=== PATIENT | female | born 1965 | race American Indian/Alaskan Native ===

== ENCOUNTER 2018-12-04 17:49 | Emergency (ER) | payer BC ==
[2018-12-04 18:45] VITALS: BP 180/104; PULSE 76; RESP 18; TEMP 98.6; O2SAT 99
--- NOTE | 2018-12-04 18:52 | ED PDOC ---
Arrival/HPI - General Chief Complaint: Chest Pain Time Seen by Provider: 12/04/18 18:40 Historian: Patient - History of Present Illness Narrative History of Present Illness (Text): 12/04/18 18:47 53 year old female, with past medical history of hypertension, presents to the Emergency department for evaluation of intermittent chest discomfort since 2 pm this afternoon. Patient informs the episodes are transient lasting for a few min and brought on even when resting. pt states she pain is a dull ache. states she had a stress test recently , unsure of results but believes they are neg. Patient denies any other associated somatic complaints. Patient denies any fevers, chills, headache, dizziness, shortness of breath, dyspnea on exertion, cough, abdominal pain, nausea, vomiting, diarrhea, back pain, neck pain, or any other complaints. 12/04/18 21:13 Time/Duration: 4-6 hours Symptom Onset: Gradual Symptom Course: Unchanged Activities at Onset: Light Context: Home Past Medical History - Provider Review Nursing Documentation Reviewed: Yes - Infectious Disease Hx of Infectious Diseases: None - Reproductive Currently : Unknown - Cardiac Hx Cardiac Disorders: Yes Hx Hypertension: Yes - Pulmonary Hx Respiratory Disorders: No - Neurological Hx Neurological Disorder: No - HEENT Hx HEENT Disorder: No - Renal Hx Renal Disorder: No - Endocrine/Metabolic Hx Endocrine Disorders: No - Hematological/Oncological Hx Blood Disorders: No - Integumentary Hx Dermatological Disorder: No - Musculoskeletal/Rheumatological Hx Musculoskeletal Disorders: No - Gastrointestinal Hx Gastrointestinal Disorders: No - Genitourinary/Gynecological Hx Genitourinary Disorders: No - Psychiatric Hx Psychophysiologic Disorder: No Hx Substance Use: No - Surgical History Hx Section: Yes (x 2) Other/Comment: breast reduction Family/Social History - Physician Review Nursing Documentation Reviewed: Yes Family/Social History: No Known Family HX Smoking Status: Never Smoked Hx Alcohol Use: No Hx Substance Use: No Allergies/Home Meds Allergies/Adverse Reactions: Allergies No Known Allergies Allergy (Verified 03/02/16 20:25) Home Medications: Home Meds Medication Instructions Recorded Confirmed RX: Amlodipine/Valsartan 1 tab PO DAILY 03/02/16 03/02/16 [Amlodipine-Valsartan 5-160 mg] RX: Nebivolol [Bystolic] 10 mg PO DAILY 03/02/16 03/02/16 Review of Systems - Physician Review All systems were reviewed & negative as marked: Yes - Review of Systems Constitutional: absent: Fevers Respiratory: absent: SOB, Cough Cardiovascular: Chest Pain Gastrointestinal: absent: Abdominal Pain, Diarrhea, Nausea, Vomiting Genitourinary Female: absent: Dysuria, Urine Output Changes Musculoskeletal: absent: Back Pain, Neck Pain Skin: absent: Rash Neurological: absent: Headache, Dizziness Psychiatric: absent: Anxiety Physical Exam Vital Signs Reviewed: Yes Vital Signs Temp Pulse Resp BP Pulse Ox 12/04/18 18:42 98.6 F 76 18 180/104 H 99 Temperature: Afebrile Blood Pressure: Normal Pulse: Tachycardic Respiratory Rate: Normal Appearance: Positive for: Well-Appearing, Non-Toxic, Comfortable Pain Distress: None Mental Status: Positive for: Alert and Oriented X 3 - Systems Exam Head: Present: Atraumatic, Normocephalic Pupils: Present: PERRL Extroacular Muscles: Present: EOMI Conjunctiva: Present: Normal Mouth: Present: Moist Mucous Membranes Neck: Present: Normal Range of Motion Respiratory/Chest: Present: Clear to Auscultation, Good Air Exchange. No: Respiratory Distress, Accessory Muscle Use Cardiovascular: Present: Regular Rate and Rhythm, Normal S1, S2. No: Murmurs Abdomen: No: Tenderness, Distention, Peritoneal Signs Back: Present: Normal Inspection Upper Extremity: Present: Normal Inspection. No: Cyanosis, Edema Lower Extremity: Present: Normal Inspection. No: Edema Neurological: Present: GCS=15, CN II-XII Intact, Speech Normal Skin: Present: Warm, Dry, Normal Color. No: Rashes Psychiatric: Present: Alert, Oriented x 3, Normal Insight, Normal Concentration Medical Decision Making ED Course and Treatment: 12/04/18 18:54 Impression: 53 year old female presents to the Ed for evaluation of chest pain. ro acs Plan: -- EKG -- Labs -- CXR -- Urinalysis -- Reassess and disposition Prior Visits: Notes and results from previous visits were reviewed. Progress Notes: 12/04/18 21:14 atypcical cp - trop neg. (+)ekg changes ?h/o of neg stress. pain < 6 hour onset will needs serial trop. will obs. yoli accepts - RAD Interpretation Radiology Orders: 12/04/18 18:44 CHEST PORTABLE [RAD] Stat - Scribe Statement The provider has reviewed the documentation as recorded by the Scribe Tammy Mcgowan. All medical record entries made by the Scribe were at my direction and personally dictated by me. I have reviewed the chart and agree that the record accurately reflects my personal performance of the history, physical exam, medical decision making, and the department course for this patient. I have also personally directed, reviewed, and agree with the discharge instructions and disposition. Disposition/Present on Arrival - Present on Arrival Any Indicators Present on Arrival: No History of DVT/PE: No History of Uncontrolled Diabetes: No Urinary Catheter: No History of Decub. Ulcer: No History Surgical Site Infection Following: None - Disposition Have Diagnosis and Disposition been Completed?: Yes Diagnosis: Chest pain Disposition: HOME/ ROUTINE Disposition Time: 18:40 Patient Problems: Current Active Problems Problem Status Onset Chest pain Acute Condition: STABLE
[2018-12-04 19:45] LABS: ALB/GLOB RATIO 1.2 (1.1-1.8); ALBUMIN 4.5 g/dL (3.0-4.8); ALT/SGPT 21 U/L (7-56); AST/SGOT 24 U/L (14-36); BLOOD UREA NITROGEN 12 mg/dL (7-21); CALCIUM 9.8 mg/dL (8.4-10.5); GFR NON-AFRICAN AMERICAN > 60
[2018-12-04 19:54] LABS: TROPONIN I < 0.01 ng/mL
[2018-12-04 19:56] LABS: B-TYPE NATRIURETIC PEPTIDE 99.1 pg/mL (0-450); BASO # 0.01 K/mm3 (0.0-2.0); BASO % 0.1 % (0.0-3.0); EOS % 0.4 % (1.5-5.0); HEMOGLOBIN 9.6 g/dL (12.0-16.0); LYMPH # 3.1 (1.2-3.4); LYMPH % 32.9 % (22.0-35.0); MEAN CELL VOLUME 78.9 fl (80.0-105.0); MEAN CORPUSCULAR HEMOGLOBIN 22.7 pg (25.0-35.0); MEAN CORPUSCULAR HGB CONC 28.8 g/dl (31.0-37.0); MEAN PLATELET VOLUME 10.6 fl (7.0-11.0); MONO # 0.5 (0.1-0.6); MONO % 5.7 % (1.0-6.0); RBC 4.22 10^6/uL (3.5-6.1); RED CELL DISTRIBUTION WIDTH 17.1 % (11.5-14.5); WHITE BLOOD COUNT 9.4 10^3/uL (4.5-11.0)
[2018-12-04 19:58] LABS: URINE BILIRUBIN NEGATIVE (NEGATIVE); URINE BLOOD NEGATIVE (NEGATIVE); URINE GLUCOSE (UA) NEGATIVE (NEGATIVE); URINE LEUKOCYTE ESTERASE SMALL Leu/uL (NEGATIVE); URINE PROTEIN NEGATIVE mg/dL (<30 mg/dL); URINE UROBILINOGEN 0.2 E.U./dL (<1 E.U./dL)
[2018-12-04 19:59] LABS: INR 1.05; PROTHROMBIN TIME 11.6 SECONDS (9.4-12.5)
[2018-12-04 20:02] LABS: URINE APPEARANCE CLEAR (CLEAR); URINE COLOR STRAW (YELLOW)
[2018-12-04 20:38] LABS: HCG,QUALITATIVE URINE NEGATIVE (NEGATIVE); URINE BACTERIA FEW /hpf; URINE EPITHELIAL CELLS 0 - 2 /hpf (0-5); URINE RBC 0 - 2 /hpf (0-2)
--- NOTE | 2018-12-04 22:26 | CP.PCM.HP ---
History of Present Illness - History of Present Illness History of Present Illness: Resident History & Physical for Dr. Fernandez Patient is a 53 year old female with past medical history of HTN, T2DM, obesity presenting with chief complaint of intermittent chest pain which began today afternoon. Pain is localized to left anterior chest wall and described as a dull aching sensation that lasts for a few minutes per episode. Patient states the pain began at rest. Denies any associated diaphoresis or dyspnea. 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 Tejeda about a week prior and had stress tests done which were unremarkable. Patient states she also had her blood pressure medications adjusted recently, and was unable to take her amlodipine valsartan for a few days. Denies fevers, chills, shortness of breath, abdominal pain, nausea, vomiting, diarrhea, dysuria. PMH: HTN, T2DM, obesity PSH: tubal ligation, x2, reduction mammoplasty SHx: denies alcohol, tobacco, illicit drug use FHx: mother (HTN, T2DM, brain aneurysm), father (HTN, T2DM) Allergies: NKDA PMD: Dr. Dozier Present on Admission - Present on Admission Any Indicators Present on Admission: No Review of Systems - Review of Systems All systems: reviewed and no additional remarkable complaints except (as stated in HPI) Past Patient History - Infectious Disease Hx of Infectious Diseases: None - Past Social History Smoking Status: Never Smoked - CARDIAC Hx Cardiac Disorders: Yes Hx Hypertension: Yes - PULMONARY Hx Respiratory Disorders: No - NEUROLOGICAL Hx Neurological Disorder: No - HEENT Hx HEENT Problems: No - RENAL Hx Chronic Kidney Disease: No - ENDOCRINE/METABOLIC Hx Endocrine Disorders: No - HEMATOLOGICAL/ONCOLOGICAL Hx Blood Disorders: No - INTEGUMENTARY Hx Dermatological Problems: No - MUSCULOSKELETAL/RHEUMATOLOGICAL Hx Musculoskeletal Disorders: No - GASTROINTESTINAL Hx Gastrointestinal Disorders: No - GENITOURINARY/GYNECOLOGICAL Hx Genitourinary Disorders: No - PSYCHIATRIC Hx Psychophysiologic Disorder: No Hx Substance Use: No - SURGICAL HISTORY Hx Section: Yes (x 2) Other/Comment: breast reduction Meds Allergies/Adverse Reactions: Allergies Allergy/AdvReac Type Severity Reaction Status Date / Time No Known Allergies Allergy Verified 03/02/16 20:25 Physical Exam - Constitutional Appears: Non-toxic, No Acute Distress - Head Exam Head Exam: ATRAUMATIC, NORMOCEPHALIC - Eye Exam Eye Exam: EOMI, Normal appearance, PERRL - ENT Exam ENT Exam: Mucous Membranes Moist, Normal Exam - Neck Exam Neck exam: Positive for: Full Rom. Negative for: Lymphadenopathy, Tenderness - Respiratory Exam Respiratory Exam: Clear to Auscultation Bilateral, NORMAL BREATHING PATTERN. absent: Accessory Muscle Use, Chest Wall Tenderness, Rales, Rhonchi, Wheezes, Respiratory Distress - Cardiovascular Exam Cardiovascular Exam: REGULAR RHYTHM, +S1, +S2. absent: Tachycardia, Systolic Murmur - GI/Abdominal Exam GI & Abdominal Exam: Normal Bowel Sounds, Soft. absent: Distended, Firm, Guarding, Rebound, Tenderness - Extremities Exam Extremities exam: Positive for: normal capillary refill, normal inspection, pedal pulses present. Negative for: pedal edema - Neurological Exam Neurological exam: Alert, CN II-XII Intact, Oriented x3 - Psychiatric Exam Psychiatric exam: Normal Affect, Normal Mood - Skin Skin Exam: Dry, Intact, Normal Color, Warm Results - Vital Signs Recent Vital Signs: Last Vital Signs Temp 98.6 F 12/04/18 18:42 Pulse 76 12/04/18 18:42 Resp 18 12/04/18 18:42 BP 180/104 H 12/04/18 18:42 Pulse Ox 99 12/04/18 18:42 - Labs Result Diagrams: 12/04/18 19:20 12/04/18 19:20 Labs: Laboratory Results - last 24 hr 12/04/18 12/04/18 12/04/18 19:20 19:20 19:20 WBC 9.4 RBC 4.22 Hgb 9.6 L Hct 33.3 L MCV 78.9 L MCH 22.7 L MCHC 28.8 L RDW 17.1 H Plt Count 442 MPV 10.6 Neut % (Auto) 60.9 Lymph % (Auto) 32.9 [place] % (Auto) 5.7 Eos % (Auto) 0.4 L Baso % (Auto) 0.1 Lymph # (Auto) 3.1 [place] # (Auto) 0.5 Eos # (Auto) 0.0 Baso # (Auto) 0.01 Absolute Neuts (auto) 5.71 PT 11.6 INR 1.05 APTT 34.0 D-Dimer, Quantitative Sodium Potassium Chloride Carbon Dioxide Anion Gap BUN Creatinine Est GFR ( Amer) Est GFR (Non-Af Amer) Random Glucose Calcium Magnesium Total Bilirubin AST ALT Alkaline Phosphatase Lactate Dehydrogenase Total Creatine Kinase Troponin I NT-Pro-B Natriuret Pep Total Protein Albumin Globulin Albumin/Globulin Ratio Urine Color Straw Urine Appearance Clear Urine pH 6.0 Ur Specific [place] <= 1.005 Urine Protein Negative Urine Glucose (UA) Negative Urine Ketones Negative Urine Blood Negative Urine Nitrate Negative Urine Bilirubin Negative Urine Urobilinogen 0.2 Ur Leukocyte Esterase Small H Urine RBC 0 - 2 Urine WBC 2 - 5 Ur Epithelial Cells 0 - 2 Urine Bacteria Few Urine HCG, Qual Negative 12/04/18 12/04/18 19:20 19:20 WBC RBC Hgb Hct MCV MCH MCHC RDW Plt Count MPV Neut % (Auto) Lymph % (Auto) [place] % (Auto) Eos % (Auto) Baso % (Auto) Lymph # (Auto) [place] # (Auto) Eos # (Auto) Baso # (Auto) Absolute Neuts (auto) PT INR APTT D-Dimer, Quantitative < 200 Sodium 142 Potassium 4.1 Chloride 107 Carbon Dioxide 25 Anion Gap 14 BUN 12 Creatinine 0.7 Est GFR ( Amer) > 60 Est GFR (Non-Af Amer) > 60 Random Glucose 94 Calcium 9.8 Magnesium 1.8 Total Bilirubin 0.3 AST 24 ALT 21 Alkaline Phosphatase 84 Lactate Dehydrogenase 496 Total Creatine Kinase 72 Troponin I < 0.01 NT-Pro-B Natriuret Pep 99.1 Total Protein 8.4 H Albumin 4.5 Globulin 3.9 Albumin/Globulin Ratio 1.2 Urine Color Urine Appearance Urine pH Ur Specific [place] Urine Protein Urine Glucose (UA) Urine Ketones Urine Blood Urine Nitrate Urine Bilirubin Urine Urobilinogen Ur Leukocyte Esterase Urine RBC Urine WBC Ur Epithelial Cells Urine Bacteria Urine HCG, Qual Assessment & Plan - Assessment and Plan (Free Text) Assessment: Patient is a 53 year old female with past medical history of HTN, T2DM, obesity presenting with chief complaint of chest pain. Plan: Chest pain - troponin neg x1 - EKG shows sinus rhythm with PVCs, nonspecific T wave abnormality - AYUSH score 0 - Aspirin 81 mg PO daily - Lipitor 40 mg PO DIN - Metoprolol 12.5 mg PO daily - Nitroglycerin patch - Troponins Q4H - EKG in AM - TSH, T4, lipid panel - Cardiology consulted. Appreciate recs Anemia - followup iron studies - FOBT x3 T2DM - hold home metformin - ISS, Accuchecks - Hgba1c HTN - hold home amlodipine/valsartan - continue to monitor PPX - Lovenox 40 mg SC daily - Protonix 40 mg IVP daily Case discussed with Dr. Rebecca Sims PGY-1 - Date & Time Date: 12/05/18
[2018-12-04] MEDS ORDERED: Nitroglycerin 2% Ointment Foilpak UD TOP PRN ×2 (22:30→22:44)
[2018-12-04] MEDS ORDERED: Dextrose 50% SYRINGE Inj (50 ml) IV PRN (23:01)
--- NOTE | 2018-12-04 23:20 | CARD ---
APPROVED REPORT Date of service: 12/04/2018 EKG Measurement Heart [id number] <Conclusion> Sinus rhythm with premature supraventricular complexes Nonspecific T wave abnormality Abnormal ECG
[2018-12-05 00:40] LABS: IRON 35 ug/dL (45-180)
[2018-12-05 00:41] LABS: HDL CHOLESTEROL 48 mg/dL (29-60)
[2018-12-05 00:50] LABS: % IRON SATURATION 11 % (20-55); TOTAL IRON BINDING CAPACITY 334 ug/dL (265-497)
[2018-12-05 00:52] LABS: LDL CHOLESTEROL 91 mg/dL (0-129)
[2018-12-05 00:55] LABS: TROPONIN I < 0.01 ng/mL
[2018-12-05 00:59] LABS: FREE T4 1.42 ng/dL (0.78-2.19); T4 8.7 ug/dL (5.5-11.0)
[2018-12-05] MEDS ORDERED: Insulin Reg-HIGH-Coverage SC SCH (07:30)
[2018-12-05 08:03] LABS: BASO # 0.01 K/mm3 (0.0-2.0); BASO % 0.1 % (0.0-3.0); EOS # 0.1 (0.0-0.7); EOS % 0.8 % (1.5-5.0); HEMOGLOBIN 9.1 g/dL (12.0-16.0); LYMPH # 2.4 (1.2-3.4); LYMPH % 30.5 % (22.0-35.0); MEAN CELL VOLUME 78.9 fl (80.0-105.0); MEAN CORPUSCULAR HEMOGLOBIN 23.2 pg (25.0-35.0); MEAN CORPUSCULAR HGB CONC 29.4 g/dl (31.0-37.0); MEAN PLATELET VOLUME 9.7 fl (7.0-11.0); MONO # 0.5 (0.1-0.6); MONO % 6.8 % (1.0-6.0); RBC 3.93 10^6/uL (3.5-6.1); RED CELL DISTRIBUTION WIDTH 16.8 % (11.5-14.5); WHITE BLOOD COUNT 7.8 10^3/uL (4.5-11.0)
[2018-12-05 08:28] LABS: TROPONIN I < 0.01 ng/mL
[2018-12-05 09:02] LABS: ALB/GLOB RATIO 1.2 (1.1-1.8); ALBUMIN 4.1 g/dL (3.0-4.8); ALT/SGPT 18 U/L (7-56); AST/SGOT 19 U/L (14-36); BLOOD UREA NITROGEN 11 mg/dL (7-21); CALCIUM 9.8 mg/dL (8.4-10.5); GFR NON-AFRICAN AMERICAN > 60
--- NOTE | 2018-12-05 09:15 | CP.PCM.DIS ---
Provider - Provider Date of Admission: 12/04/18 20:58 Attending physician: Jeromy Fernandez MD Primary care physician: Tom Dozier MD Phd Consults: 12/04/18 21:12 Consult [Physician Consult] Routine Comment: Consulting Provider: Christopher Ramos Consulting Physician: Christopher Ramos Reason for Consult: chest pain Time Spent in preparation of Discharge (in minutes): 30 Diagnosis - Discharge Diagnosis (1) Chest pain Status: Acute Hospital Course - Lab Results Lab Results: Most Recent Lab Values WBC 7.8 10^3/uL (4.5-11.0) 12/05/18 07:30 RBC 3.93 10^6/uL (3.5-6.1) 12/05/18 07:30 Hgb 9.1 g/dL (12.0-16.0) L 12/05/18 07:30 Hct 31.0 % (36.0-48.0) L 12/05/18 07:30 MCV 78.9 fl (80.0-105.0) L 12/05/18 07:30 MCH 23.2 pg (25.0-35.0) L 12/05/18 07:30 MCHC 29.4 g/dl (31.0-37.0) L 12/05/18 07:30 RDW 16.8 % (11.5-14.5) H 12/05/18 07:30 Plt Count 383 10^3/uL (120.0-450.0) 12/05/18 07:30 MPV 9.7 fl (7.0-11.0) 12/05/18 07:30 Neut % (Auto) 61.8 % (50.0-68.0) 12/05/18 07:30 Lymph % (Auto) 30.5 % (22.0-35.0) 12/05/18 07:30 [place] % (Auto) 6.8 % (1.0-6.0) H 12/05/18 07:30 Eos % (Auto) 0.8 % (1.5-5.0) L 12/05/18 07:30 Baso % (Auto) 0.1 % (0.0-3.0) 12/05/18 07:30 Lymph # (Auto) 2.4 (1.2-3.4) 12/05/18 07:30 [place] # (Auto) 0.5 (0.1-0.6) 12/05/18 07:30 Eos # (Auto) 0.1 (0.0-0.7) 12/05/18 07:30 Baso # (Auto) 0.01 K/mm3 (0.0-2.0) 12/05/18 07:30 Absolute Neuts (auto) 4.85 (1.4-6.5) 12/05/18 07:30 ESR 42 mm/hr (0.0-20.0) H 12/05/18 00:10 Retic Count 1.63 % (0.5-1.5) H 12/05/18 00:10 PT 11.6 SECONDS (9.4-12.5) 12/04/18 19:20 INR 1.05 12/04/18 19:20 APTT 34.0 Seconds (26.9-38.3) 12/04/18 19:20 D-Dimer, Quantitative < 200 ng/mlDDU (0-243) 12/04/18 19:20 Sodium 140 mmol/L (132-148) 12/05/18 07:30 Potassium 3.7 mmol/L (3.6-5.0) 12/05/18 07:30 Chloride 107 mmol/L (98-107) 12/05/18 07:30 Carbon Dioxide 25 mmol/L (21-33) 12/05/18 07:30 Anion Gap 12 (10-20) 12/05/18 07:30 BUN 11 mg/dL (7-21) 12/05/18 07:30 Creatinine 0.7 mg/dl (0.7-1.2) 12/05/18 07:30 Est GFR ( Amer) > 60 12/05/18 07:30 Est GFR (Non-Af Amer) > 60 12/05/18 07:30 POC Glucose (mg/dL) 138 mg/dL (65-110) H 12/05/18 08:49 Random Glucose 147 mg/dL (70-110) H 12/05/18 07:30 Calcium 9.8 mg/dL (8.4-10.5) 12/05/18 07:30 Phosphorus 3.8 mg/dL (2.5-4.5) 12/05/18 07:30 Magnesium 1.8 mg/dL (1.7-2.2) 12/05/18 07:30 Iron 35 ug/dL (45-180) L 12/05/18 00:10 TIBC 334 ug/dL (265-497) 12/05/18 00:10 % Saturation 11 % (20-55) L 12/05/18 00:10 Total Bilirubin 0.2 mg/dL (0.2-1.3) 12/05/18 07:30 AST 19 U/L (14-36) 12/05/18 07:30 ALT 18 U/L (7-56) 12/05/18 07:30 Alkaline Phosphatase 75 U/L (38-126) 12/05/18 07:30 Lactate Dehydrogenase 496 U/L (333-699) 12/04/18 19:20 Total Creatine Kinase 52 U/L (35-230) 12/05/18 07:30 Troponin I < 0.01 ng/mL 12/05/18 07:30 NT-Pro-B Natriuret Pep 99.1 pg/mL (0-450) 12/04/18 19:20 Total Protein 7.6 g/dL (5.8-8.3) 12/05/18 07:30 Albumin 4.1 g/dL (3.0-4.8) 12/05/18 07:30 Globulin 3.5 gm/dL 12/05/18 07:30 Albumin/Globulin Ratio 1.2 (1.1-1.8) 12/05/18 07:30 Triglycerides 74 mg/dL (35-160) 12/05/18 00:10 Cholesterol 165 mg/dL (130-200) 12/05/18 00:10 LDL Cholesterol Direct 91 mg/dL (0-129) 12/05/18 00:10 HDL Cholesterol 48 mg/dL (29-60) 12/05/18 00:10 Free T4 1.42 ng/dL (0.78-2.19) 12/05/18 00:10 Thyroxine (T4) 8.7 ug/dL (5.5-11.0) 12/05/18 00:10 TSH 3rd Generation 1.52 mIU/mL (0.46-4.68) 12/05/18 00:10 Urine Color Straw (YELLOW) 12/04/18: Urine Appearance Clear (CLEAR) 12/04/18: Urine pH 6.0 (4.7-8.0) 12/04/18: Ur Specific [place] <= 1.005 (1.005-1.035) 12/04/18: Urine Protein Negative mg/dL (<30 mg/dL) 12/04/18: Urine Glucose (UA) Negative mg/dL (NEGATIVE) 12/04/18: Urine Ketones Negative mg/dL (NEGATIVE) 12/04/18: Urine Blood Negative (NEGATIVE) 12/04/18: Urine Nitrate Negative (NEGATIVE) 12/04/18 Urine Bilirubin Negative (NEGATIVE) 12/04/18 Urine Urobilinogen 0.2 E.U./dL (<1 E.U./dL) 12/04/18 Ur Leukocyte Esterase Small Llu[place]/uL (NEGATIVE) H 12/04/18: Urine RBC 0 - 2 /hpf (0-2) 12/04/18: Urine WBC 2 - 5 /hpf (0-6) 12/04/18: Ur Epithelial Cells 0 - 2 /hpf (0-5) 12/04/18: Urine Bacteria Few /hpf (NONE) 12/04/18: Urine HCG, Qual Negative (NEGATIVE) 12/04/18 - Hospital Course Hospital Course: Ms Jiang, 53F, with past medical history of HTN, T2DM, obesity presenting with chief complaint of intermittent chest pain x 1 day. Pain is localized to left anterior chest wall and described as a dull aching sensation that lasts for a few minutes per episode. Patient states the pain began at rest. Denies any associated diaphoresis or dyspnea. Patient recently followed up with her structural drafter Dr. Tejeda about a week prior and had stress tests done which were unremarkable. Patient states she also had her blood pressure medications adjusted recently, and was unable to take her amlodipine valsartan for a few days. She was under telemetry observation. serial troponins and EKGs neg of ACS. AYUSH score 0. She was found to be microcytic anemic at Hb 9, MCV 70s, retic high at 1.63. She will have endoscopy with Dr Jacobs at [facility] on 12/25. Total cholesterol 164, LDL 91, she was added statin. Due to her recent NSAID use, and anemia, she was told not to continue NSAID for possible GI bleed. Add protonix for now. Pt will be discharged home. Report from Dr Kim office: Stress test with nuclear: (11/24/18) PERFUSION IMAGING: The post exercise myocardial scintigrams performed revealed a mildly dense, small-sized, fixed inferior wall defect. Myocardial scintigrams performed at rest revealed a similar perfusion pattern. LEFT VENTRICULAR FUNCTION: Revealed preserved left ventricular systolic function. EJECTION FRACTION was calculated to be 61 %. IMPRESSION: There is no definite evidence of reversible myocardial ischemia noted in this study. IMPRESSION: 1) Preserved left ventricular systolic function. Ejection fraction is calculated to be 59 %. 2) No resting wall motion abnormality. 3) Mild concentric left ventricle hypertrophy. 4) Mild MR/TR with a PA systolic pressure calculated to be 18 mmHg. Discharge Exam - Head Exam Head Exam: ATRAUMATIC, NORMAL INSPECTION, NORMOCEPHALIC - Eye Exam Eye Exam: EOMI, Normal appearance, PERRL. absent: Scleral icterus Pupil Exam: NORMAL ACCOMODATION - ENT Exam ENT Exam: Mucous Membranes Moist - Neck Exam Neck exam: Full Rom, Lymphadenopathy, Normal Inspection - Respiratory Exam Respiratory Exam: Clear to PA & Lateral, NORMAL BREATHING PATTERN, UNREMARKABLE. absent: Rales, Rhonchi, Wheezes - Cardiovascular Exam Cardiovascular Exam: REGULAR RHYTHM, +S1, +S2 - GI/Abdominal Exam GI & Abdominal Exam: Normal Bowel Sounds, Soft, Unremarkable - Extremities Exam Extremities exam: normal capillary refill, pedal pulses present - Back Exam Back exam: CVA tenderness (L), CVA tenderness (R) - Neurological Exam Neurological exam: Alert, CN II-XII Intact, Normal Gait, Oriented x3, Reflexes Normal - Psychiatric Exam Psychiatric exam: Normal Affect, Normal Mood - Skin Skin Exam: Dry, Warm Discharge Plan - Discharge Medications Prescriptions: Atorvastatin [Lipitor] 40 mg PO DIN #30 tab Pantoprazole [Protonix Inj] 40 mg EC DAILY #30 tab.ec - Follow Up Plan Condition: STABLE Disposition: HOME/ ROUTINE Instructions: Chest Pain (ED) Additional Instructions: MAY DISCHARGE AFTER CLEARED BY FOLLOW PMD AND CARDIOLOGY WITHIN 1 WEEK FOLLOW UP GI FOR EGD AND COLONSCOPY. Pt had appointment with Dr Jacobs for endoscopy on 12/25 DISCHARGE MEDS PER UPDATED AMBULATORY ORDERS PLUS NEW SCRIPTS STOP ALL NSAIDS Referrals: Mouna Tejeda MD [Medical Doctor] - 1 Week (FEBRUARY DISCHARGE AFTER CLEARED BY FOLLOW PMD AND CARDIOLOGY WITHIN 1 WEEK FOLLOW UP GI FOR EGD AND COLONSCOPY. DISCHARGE MEDS PER UPDATED AMBULATORY ORDERS PLUS NEW SCRIPTS STOP ALL NSAIDS ) Tom Dozier MD, PhD [Primary Care Provider] - Follow up with primary (FEBRUARY DISCHARGE AFTER CLEARED BY FOLLOW PMD AND CARDIOLOGY WITHIN 1 WEEK FOLLOW UP GI FOR EGD AND COLONSCOPY. DISCHARGE MEDS PER UPDATED AMBULATORY ORDERS PLUS NEW SCRIPTS STOP ALL NSAIDS )
--- NOTE | 2018-12-05 09:49 | RAD ---
Date of service: 12/04/2018 HISTORY: cp COMPARISON: No prior. FINDINGS: LUNGS: No active pulmonary disease. PLEURA: No significant pleural effusion identified, no pneumothorax apparent. CARDIOVASCULAR: No aortic atherosclerotic calcification present. Normal cardiac size. No pulmonary vascular congestion. OSSEOUS STRUCTURES: No significant abnormalities. VISUALIZED UPPER ABDOMEN: Normal. OTHER FINDINGS: None. IMPRESSION: No active disease.
[2018-12-05] MEDS ORDERED: Enoxaparin 40 mg Syringe SC SCH (10:00)
--- NOTE | 2018-12-05 10:57 | DS ---
HISTORY OF PRESENT ILLNESS: DATE OF DISCHARGE Therapy the patient is seen in ice the teens the patient is seen lying in the bed. The patient states that her chest pain has completely resolved and the patient does not have any chest pain or shortness of breath 14-system review was done, pertinent positive negative dictated above. The patient slept well without any adverse complications of events. PHYSICAL EXAMINATION: GENERAL: The patient is seen sitting up in the bed. VITAL SIGNS: T-max 98.6. Telemetry shows sinus rhythm, heart rate 76. Blood pressure from this morning on the telemetry monitoring was 148/86. Respirations 18, O2 sat 99%. HEENT: Head is normocephalic, atraumatic. HEENT examination shows pinkish pale conjunctivae. Anicteric sclerae. No oropharyngeal lesion. NECK: No neck rigidity. LUNGS: Unable to appreciate any audible crackle, rales or wheezing. CARDIOVASCULAR: S1, S2, regular rhythm. ABDOMEN: Soft. Positive bowel sound. No palpable hepatosplenomegaly. GENITALIA: Female. RECTAL: Deferred. EXTREMITIES: Shows no pitting edema, no calf tenderness, no Homans' sign. NEUROLOGIC: The patient is alert, awake, oriented x3. Cranial nerves II-XII intact. Gait examination is not tested. MUSCULOSKELETAL: Shows a body mass index of 40. Motor strength is 5/5 in upper and lower extremity. PSYCHIATRIC: Negative. DIAGNOSTICS: CBC was reviewed. Hemoglobin/hematocrit 9.1, 31, MCV 78, platelet 383. ESR 42. Retic count 1.63. D-dimer, PT/PTT negative. Chemistries shows glucose of 148. Iron level is 35, saturation is 11. Troponin, all three sets are negative. Cholesterol 165. LDL is 91. Thyroid panel is negative. Urine is negative. Chest x-ray was reviewed which does not show any infiltrates or effusion. EKG shows sinus rhythm with some nonspecific ST changes. FINAL IMPRESSION AND DISCHARGE DIAGNOSES: 1. Atypical musculoskeletal midsternal chest pain. 2. Status post recent nuclear stress test negative as per the patient. 3. Hypertension. 4. Type 2 diabetes mellitus. 5. History of degenerative joint disease and arthritis of the knees. 6. Microcytic anemia. 7. Elevated erythrocyte sedimentation rate. 8. Non insulin-requiring diabetes mellitus. 9. Iron deficiency/ 10. History of nonsteroidal anti-inflammatory drug use. 11. Status post nuclear stress test negative as per the patient. 12. History of microcytic anemia. 13. History of hyperlipidemia. 14. Obesity with elevated body mass index. 15. History of degenerative joint disease. 16. History of sinus bradycardia. 17. History of obesity. 18. History of tubal ligation, and reduction mammoplasty, family history of diabetes, hypertension and brain aneurysm. 19. Chest pain, etiology unclear versus musculoskeletal chest pain versus gastroesophageal reflux. PLAN: At this time since the patient recently had a nuclear stress test with her assistant attorney general, Dr. Monroy which was negative according to the patient. We are awaiting further recommendation by Dr. Ramos from Cardiology. The patient will be considered for discharge after seen and cleared by Dr. Ramos from Cardiology and followup with the patient's own primary care physician, . The patient's current medications are aspirin 81 mg daily, Humulin regular insulin sliding scale coverage, Lipitor 40 mg daily, Lovenox 40 subcutaneously daily, nitro paste 1 inch every 6, Protonix 40 IV daily, Tylenol p.r.n. The patient has been ordered an echo which will be done. Stool occult blood ordered. The patient's pending SR erythropoietin, hemoglobin A1c, B12, folate, ferritin. The patient's above tests are pending, which the patient was advised to follow up as an outpatient. The patient's CBC from today is reviewed. The patient will be given a dose of Venofer today because of iron deficiency anemia. We are awaiting for Cardiology evaluation. If the patient is cleared for discharge, the patient will be discharged after cleared by Cardiology. The patient has been advised to stop her nonsteroidal anti-inflammatory medication. The patient was also advised to discuss with the primary care physician regarding continuation of the Exforge. The patient is presently on home metformin 1000 mg twice a day. The patient was given a prescription for Lipitor 40 mg, 30 tablets. Hemoglobin A1c is pending. The patient will be given prescriptions for medications, Lipitor and Protonix. The patient was advised to continue follow up with the primary care physician and assistant attorney general, . Time spent in the discharge process 45 minutes. Dictated and electronically signed, not read. Jeromy Fernandez MD [facility] # [id number]
[2018-12-05 13:22] LABS: FERRITIN 9.7 ng/mL
[2018-12-05 13:52] LABS: FOLATE 5.7 ng/mL
--- NOTE | 2018-12-06 09:00 | CARD ---
APPROVED REPORT Date of service: 12/05/2018 EKG Measurement Heart [id number] <Conclusion> Normal sinus rhythm T wave abnormality, consider anterior ischemia Abnormal ECG
--- NOTE | 2018-12-06 12:38 | CON ---
DATE: (Always retain DOS field) When I was looking for her in the emergency room, the patient was already discharged. I called to her home, ____ no answer. 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 Foster. No consultation was done. Christopher Ramos MD
== END 2018-12-05 20:31 | disposition home or self-care (01) ==
LOC: ED 17:49 → ERH 20:58 → UNDOADMOB 20:58 → ED 12-05 20:31
DX: R07.9 Chest pain, unspecified (principal); I10 Essential (primary) hypertension; E11.9 Type 2 diabetes mellitus without complications
CPT/HCPCS: 71045; 80053; 80061; 81001; 81025; 82550; 82607; 82668; 82728; 82746; 82948; 83036; 83540; 83550; 83615; 83735; 83880; 84100; 84439; 84443; 84484; 84703; 85025; 85044; 85378; 85610; 85651; 85730; 86140; 86677; 87086; 93005; 96372; 96374; 99283; C9113; J1650